=== PATIENT | female | born 1980 | race Caucasian/White ===

== ENCOUNTER 2021-04-27 06:48 | Emergency (ER) | payer OTHER ==
[~2021-04-27] VITALS: Ht 160 cm; Wt 68.0 kg
[2021-04-27 06:50] VITALS: BP 144/101
[2021-04-27] MEDS ORDERED: PHENAZOPYRIDINE HCL 200 MG TABLET PO SCH (08:00)
[2021-04-27 08:21] LABS: APPEARANCE,URINE Clear (CLEAR); BILIRUBIN,URINE Negative (NEGATIVE); COLOR,URINE Yellow (YELLOW); GLUCOSE, URINE (UA) Negative (NEGATIVE); KETONES,URINE Negative (NEGATIVE); LEUKOCYTE ESTERASE ,URINE Large (NEGATIVE); NITRATE,URINE Negative (NEGATIVE); OCCULT BLOOD,URINE Small (NEGATIVE); PH,URINE 7.5 (5.0-8.0); PROTEIN,URINE Negative (NEGATIVE); UROBILINOGEN,URINE 0.2 mg/dL (0.2-1.0)
[2021-04-27 08:24] LABS: HCG,QUAL RESULT NEGATIVE (NEGATIVE)
[2021-04-27 08:37] LABS: BACTERIA,URINE Few /HPF (None Seen)
[2021-04-27 08:38] LABS: SQUAMOUS EPITHELIAL CELL,UR Moderate /HPF (0-2)
[2021-04-27] MEDS ORDERED: PHEN-847 PO (08:46)
[2021-04-27] MEDS ORDERED: MACR100 PO (08:46)
== END 2021-04-27 09:01 | disposition home or self-care (01) ==
LOC: EDH 06:48
DX: N39.0 Urinary tract infection, site not specified (principal); Z91.041 Radiographic dye allergy status
CPT/HCPCS: 81001; 81025; 87088